=== PATIENT | male | born 1960 | race Caucasian/White ===

== ENCOUNTER → 2022-01-24 | Day surgery (SDC) | payer OTHER ==
[~2022-01-24] MED LIST: ATROPINE SULFATE 1 MG/ML VIAL ONE; AZITHROMYCIN250 MG PO; FENTANYL CITRATE/PF 100MCG/2 ML INJ ONE; FINASTERIDE5 MG PO; FLOMAX0.4 MG PO; LEVAQUIN500 MG PO; MIDAZOLAM HCL 2 MG/2 ML VIAL ONE; NORCO 7.5-3251 EACH PO; POVIDONE IODINE 0.05% 0.05 % ML PO ONE; PROPOFOL IV EMULSION 10 MG/ML 20 ML VIAL ONE
[2022-01-24 17:25] VITALS: BP 113/92
== END | disposition home or self-care (01) ==
LOC: OR 13:45
PROVIDERS: ATTEND Internal Medicine Gastroenterology
DX: Z12.11 Encounter for screening for malignant neoplasm of colon (principal); D12.0 Benign neoplasm of cecum; D12.5 Benign neoplasm of sigmoid colon; D12.8 Benign neoplasm of rectum; K64.8 Other hemorrhoids; Z71.3 Dietary counseling and surveillance; N40.0 Benign prostatic hyperplasia without lower urinary tract symptoms; H91.92 Unspecified hearing loss, left ear; I10 Essential (primary) hypertension; Z71.89 Other specified counseling; Z88.0 Allergy status to penicillin; Z01.810 Encounter for preprocedural cardiovascular examination; Z20.822 Contact with and (suspected) exposure to COVID-19; Z79.899 Other long term (current) drug therapy; Z68.35 Body mass index [BMI] 35.0-35.9, adult
CPT/HCPCS: 0223U; 36415; 45380; 45381; 45385; 93005; J0461; J2250; J2704; J3010